=== PATIENT | male | born 1995 | race Caucasian/White ===

== ENCOUNTER 2021-01-07 13:50 | Day surgery (SDC) | payer OTHER ==
[~2021-01-07] VITALS: Ht 17.8 cm; Wt 87.4 kg
[2021-01-07 15:15] VITALS: BP 110/73; PULSE 55; TEMP 98.5
--- NOTE | 2021-01-07 15:17 | NUR ---
Patient ambulated to bay #6 without difficulty, no assistive devices. Consent reviewed and signed. IV started. Vitals obtained. Side rails x2. Call byrd is at bedside. Warm blanket provided. Non-slip socks are on. SEE PHYSICAL ASSESSMENT.
[2021-01-07 17:45] VITALS: BP 130/81; PULSE 61; TEMP 97.5
--- NOTE | 2021-01-07 17:45 | NUR ---
Patient arrived from PACU escorted by JENNIFER Murray. Patient is alert and oriented x3. Patient requested water and a chocolate muffin. He is tolerating it well. Vitals obtained and are WNL. Patient stated desire to be discharged and verbalized understanding of procedure. Will continue to monitor.
--- NOTE | 2021-01-07 17:50 | NUR ---
PRN pain medication administered due to 6/10 pain.
[2021-01-07 17:53] VITALS: TEMP 98.5
[2021-01-07 18:00] VITALS: BP 124/84; PULSE 66
--- NOTE | 2021-01-07 18:00 | NUR ---
Vitals obatined. Side rails x2. Call byrd at bedside. Patient requested red edgar.
[2021-01-07 18:15] VITALS: BP 128/74; PULSE 60
--- NOTE | 2021-01-07 18:15 | NUR ---
Vitals obtained and are WNL. IV was disconnected from fluids and patient was assisted with ambulating to BR. Patient was able to successfully void. IV was then discontinued and patient is currently changing into his personal clothes. He states that his ride is here.
--- NOTE | 2021-01-07 18:30 | NUR ---
Catheter tip intact and pressure bandage applied.
--- NOTE | 2021-01-07 18:45 | NUR ---
Patient was escorted out via wheelchair to ED entrence by JENNIFER Herr. Patient has his personal belongings, discharge instructions and educational material in hand. Patient was transferred into the care of his friend Natalio, who is present to drive him home.
== END 2021-01-07 18:45 | disposition home or self-care (01) ==
LOC: SDCO 13:50
DX: N50.89 Other specified disorders of the male genital organs (principal); N45.2 Orchitis; R93.812 Abnormal radiologic findings on diagnostic imaging of left testicle; F17.290 Nicotine dependence, other tobacco product, uncomplicated
CPT/HCPCS: J3010; J7120